=== PATIENT | female | born 1935 | race Caucasian/White ===

== ENCOUNTER 2016-12-07 17:35 | Inpatient (IN) | payer MEDICARE, BC ==
[~2016-12-07] VITALS: Ht 170.2 cm; Wt 92.9 kg
[~2016-12-07 17:35] MED LIST: ALIGN PO; ANTIVERT 25MG25 MG PO; ASPIRIN E.C. 8181 MG PO; ASPIRIN81 M2 PO; ATIVAN 0.50.5 MG/TAB PO; EVISTA60 MG PO; LASIX20 MG PO; LEXAPRO20 MG PO; LOPERAMIDE2 MG PO; LOPRESSOR 225 MG/TAB PO; MACROBID 1100 MG/CAP PO; NEPHROCAPS PO; NORCO 325 MG-51 TAB PO; PLAVIX 75MG TAB75 MG PO; PRILOSEC 20MG20 MG PO; PRILOSEC20 M1 PO; TYLENOL 325MG325 MG PO; URECHOLINE25 MG PO; XANAX0.25 MG PO; ZOFRAN 4MG T4 MG/TAB PO; ZOFRAN ODT4 MG PO; ZYPREXA5 MG PO
[2016-12-07 18:52] LABS: BASO # 0.1 (0.0-0.2); EOS # 0.1 (0.0-0.7); EOS % 1.6 % (0-4.0); GRAN # 4.4 (1.4-6.5); GRAN % 70.3 % (42.2-75.2); INR 1.1 (0.8-3.0); LYMPH % 16.6 % (20.0-51.0); MEAN CELL VOLUME 101 fl (80.0-100.0); MEAN CORPUSCULAR HGB CONC 31 g/dl (33.0-37.0); MEAN PLATELET VOLUME 9.6 fl (7.4-10.4); MONO # 0.6 (0.1-0.6); MONO % 9.9 % (1.7-9.3); PLATELET COUNT 149 K/mm3 (130-400); PROTHROMBIN TIME 12.7 SECONDS (9.7-12.8); RED BLOOD COUNT 2.24 M/mm3 (4.10-5.30); REDCELL DISTRIBUTION WIDTH-CV 17.2 % (11.5-14.5); WHITE BLOOD COUNT 6.2 K/mm3 (4.8-10.8)
[2016-12-07 19:00] LABS: HEMATOCRIT 22.6 % (37.0-47.0); HEMOGLOBIN 7.1 g/dl (12.5-16.0); MEAN CORPUSCULAR HEMOGLOBIN 32 pg (27.0-31.0)
[2016-12-07 19:07] LABS: ADJUSTED CALCIUM 9.7 mg/dL (8.4-10.2); ALBUMIN 3.8 gm/dL (3.5-5.0); BILIRUBIN,TOTAL 1.3 mg/dL (0.0-1.0); CALCIUM 9.5 mg/dL (8.4-10.2); CREATININE, serum 1.18 mg/dL (0.52-1.25); POTASSIUM 4.8 mmol/L (3.4-5.0); TOTAL PROTEIN 6.7 gm/dL (6.4-8.2)
[2016-12-07 19:48] LABS: TROPONIN-I 0.015 ng/mL (0.000-0.034)
[2016-12-07 20:02] LABS: MEAN CELL VOLUME 99 fl (80.0-100.0); MEAN CORPUSCULAR HGB CONC 32 g/dl (33.0-37.0); MEAN PLATELET VOLUME 9.3 fl (7.4-10.4); PLATELET COUNT 134 K/mm3 (130-400); RED BLOOD COUNT 2.16 M/mm3 (4.10-5.30); REDCELL DISTRIBUTION WIDTH-CV 16.9 % (11.5-14.5); WHITE BLOOD COUNT 5.8 K/mm3 (4.8-10.8)
[2016-12-07 20:05] LABS: HEMATOCRIT 21.3 % (37.0-47.0); HEMOGLOBIN 6.7 g/dl (12.5-16.0); MEAN CORPUSCULAR HEMOGLOBIN 31 pg (27.0-31.0)
[2016-12-07 22:34] VITALS: BP 178/74; PULSE 74; TEMP 97.7
[2016-12-08] VITALS (15 sets, daily range): BP systolic 108–175; BP diastolic 54–86; PULSE 65–84; TEMP 97.7–99
[2016-12-08 07:17] LABS: BASO # 0.1 (0.0-0.2); BASO % 1.1 % (0.0-2.0); EOS # 0.2 (0.0-0.7); EOS % 2.5 % (0-4.0); GRAN # 4.8 (1.4-6.5); GRAN % 68.2 % (42.2-75.2); LYMPH # 1.2 (1.2-3.4); LYMPH % 17.3 % (20.0-51.0); MEAN CORPUSCULAR HGB CONC 33 g/dl (33.0-37.0); MEAN PLATELET VOLUME 9.5 fl (7.4-10.4); MONO # 0.7 (0.1-0.6); MONO % 10.3 % (1.7-9.3); PLATELET COUNT 159 K/mm3 (130-400); RED BLOOD COUNT 3.54 M/mm3 (4.10-5.30); REDCELL DISTRIBUTION WIDTH-CV 17.5 % (11.5-14.5); WHITE BLOOD COUNT 7.1 K/mm3 (4.8-10.8)
[2016-12-08 07:18] LABS: HEMATOCRIT 33.1 % (37.0-47.0); HEMOGLOBIN 10.8 g/dl (12.5-16.0); MEAN CELL VOLUME 94 fl (80.0-100.0); MEAN CORPUSCULAR HEMOGLOBIN 31 pg (27.0-31.0)
[2016-12-08 07:23] LABS: ADJUSTED CALCIUM 9.5 mg/dL (8.4-10.2); ALBUMIN 4.2 gm/dL (3.5-5.0); BILIRUBIN,TOTAL 1.4 mg/dL (0.0-1.0); CALCIUM 9.7 mg/dL (8.4-10.2); CREATININE, serum 1.27 mg/dL (0.52-1.25); POTASSIUM 4.1 mmol/L (3.4-5.0); TOTAL PROTEIN 7.3 gm/dL (6.4-8.2)
[2016-12-08 14:21] LABS: HEMATOCRIT 31.8 % (37.0-47.0); HEMOGLOBIN 10.3 g/dl (12.5-16.0)
[2016-12-09 03:47] VITALS: BP 129/51; PULSE 69; TEMP 97.9
[2016-12-09 08:08] VITALS: BP 145/63; PULSE 76; TEMP 97.4
[2016-12-09 08:09] LABS: BASO # 0.1 (0.0-0.2); EOS # 0.2 (0.0-0.7); EOS % 3.4 % (0-4.0); GRAN # 4.1 (1.4-6.5); GRAN % 64.7 % (42.2-75.2); LYMPH # 1.2 (1.2-3.4); LYMPH % 18.4 % (20.0-51.0); MEAN CELL VOLUME 93 fl (80.0-100.0); MEAN CORPUSCULAR HGB CONC 33 g/dl (33.0-37.0); MEAN PLATELET VOLUME 9.7 fl (7.4-10.4); MONO # 0.7 (0.1-0.6); MONO % 11.7 % (1.7-9.3); PLATELET COUNT 140 K/mm3 (130-400); RED BLOOD COUNT 3.49 M/mm3 (4.10-5.30); REDCELL DISTRIBUTION WIDTH-CV 18.2 % (11.5-14.5); WHITE BLOOD COUNT 6.3 K/mm3 (4.8-10.8)
[2016-12-09 08:13] LABS: HEMATOCRIT 32.6 % (37.0-47.0); HEMOGLOBIN 10.7 g/dl (12.5-16.0); MEAN CORPUSCULAR HEMOGLOBIN 31 pg (27.0-31.0)
[2016-12-09 08:23] LABS: CALCIUM 9.5 mg/dL (8.4-10.2); CREATININE, serum 1.49 mg/dL (0.52-1.25); POTASSIUM 4.3 mmol/L (3.4-5.0)
[2016-12-09 11:21] VITALS: BP 141/68; PULSE 75; TEMP 97.5
[2016-12-09 15:46] VITALS: BP 139/59; PULSE 61; TEMP 97.4
[2016-12-09] MEDS ORDERED: FERROUS GL325 MG/TAB PO (17:44)
[2016-12-09] MEDS ORDERED: TOPROL XL 25MG25 MG PO (17:45)
[2016-12-09 20:19] VITALS: BP 121/43; PULSE 66; TEMP 97.3
[2016-12-10 00:22] VITALS: BP 138/59; PULSE 66; TEMP 97.7
[2016-12-10 05:25] VITALS: BP 117/49; PULSE 63; TEMP 97.1
[2016-12-10 08:38] VITALS: BP 119/56; PULSE 60; TEMP 96.9
== END 2016-12-10 10:49 | disposition home or self-care (01) | DRG 812 ==
LOC: COL.ER 17:35 → IMCU 20:58 → MEDICAL 12-08 13:10
PROVIDERS: Emergency Medicine; Family Medicine; Nurse Practitioner Family
DX: D62 Acute posthemorrhagic anemia (principal); L76.32 Postprocedural hematoma of skin and subcutaneous tissue following other procedure; D50.9 Iron deficiency anemia, unspecified; Z66 Do not resuscitate; I71.2 Thoracic aortic aneurysm, without rupture; I12.9 Hypertensive chronic kidney disease with stage 1 through stage 4 chronic kidney disease, or unspecified chronic kidney disease; N18.2 Chronic kidney disease, stage 2 (mild); Z95.0 Presence of cardiac pacemaker; Z87.891 Personal history of nicotine dependence
CPT/HCPCS: 99223-AI; 99239; C9113; J1940; P9016; Q9967

== ENCOUNTER 2017-06-20 15:24 | Emergency (ER) | payer MEDICARE, BC ==
[~2017-06-20] VITALS: Ht 167.6 cm; Wt 46.1 kg
[~2017-06-20 15:24] MED LIST changes: +FERROUS GL325 MG/TAB PO; +TOPROL XL 25MG25 MG PO
[2017-06-20 15:44] VITALS: TEMP 97.9
[2017-06-20] MEDS ORDERED: ATIVAN 0.50.5 MG/TAB PO (15:48)
[2017-06-20 16:31] LABS: BASO # 0.1 (0.0-0.2); BASO % 1.2 % (0.0-2.0); EOS # 0.1 (0.0-0.7); EOS % 1.3 % (0-4.0); GRAN # 4.1 (1.4-6.5); GRAN % 68.6 % (42.2-75.2); LYMPH # 1.1 (1.2-3.4); MEAN CELL VOLUME 92 fl (80.0-100.0); MEAN CORPUSCULAR HGB CONC 33 g/dl (33.0-37.0); MEAN PLATELET VOLUME 9.3 fl (7.4-10.4); MONO # 0.6 (0.1-0.6); MONO % 10.6 % (1.7-9.3); PLATELET COUNT 119 K/mm3 (130-400); RED BLOOD COUNT 3.86 M/mm3 (4.10-5.30); REDCELL DISTRIBUTION WIDTH-CV 13.7 % (11.5-14.5)
[2017-06-20 16:33] LABS: HEMATOCRIT 35.4 % (37.0-47.0); HEMOGLOBIN 11.7 g/dl (12.5-16.0); MEAN CORPUSCULAR HEMOGLOBIN 30 pg (27.0-31.0)
[2017-06-20 16:44] LABS: ADJUSTED CALCIUM 9.1 mg/dL (8.4-10.2); ALANINE AMINOTRANSFERASE 19 U/L (9-52); ALKALINE PHOSPHATASE 65 U/L (50-136); ANION GAP 7 mmol/L (7-16); BILIRUBIN,TOTAL 0.6 mg/dL (0.0-1.0); BLOOD UREA NITROGEN 14 mg/dL (7-17); CALCIUM 9.1 mg/dL (8.4-10.2); CARBON DIOXIDE 26 mmol/L (22-30); CHLORIDE 96 mmol/L (98-107); CREATININE, serum 0.83 mg/dL (0.52-1.25); GLUCOSE 80 mg/dL (74-106); LIPASE 369 U/L (23-300); POTASSIUM 4.5 mmol/L (3.4-5.0); SODIUM 129 mmol/L (137-145); TOTAL PROTEIN 6.8 gm/dL (6.4-8.2)
[2017-06-20 16:52] LABS: MAGNESIUM 1.9 mg/dL (1.6-2.3)
[2017-06-20 16:57] LABS: TROPONIN-I < 0.012 ng/mL (0.000-0.034)
[2017-06-20 17:17] LABS: PH 8 (5-8); SQUAMOUS EPITHELIAL None Seen /hpf; URINE APPEARANCE Clear; URINE BACTERIA None Seen /hpf; URINE BILIRUBIN Negative (NEGATIVE); URINE BLOOD Negative (NEGATIVE); URINE COLOR Straw; URINE GLUCOSE Negative (NEGATIVE); URINE KETONE Negative (NEGATIVE); URINE RBC 0-2 /hpf; URINE UROBILINOGEN Negative (NEGATIVE)
[2017-06-20] MEDS ORDERED: ZOFRAN ODT4 MG PO (19:24)
[2017-06-20] MEDS ORDERED: PRIL40 PO (19:24)
[2017-06-20 19:34] VITALS: BP 178/92; PULSE 80
== END 2017-06-20 19:38 | disposition home or self-care (01) ==
LOC: COL.ER 15:24
PROVIDERS: Emergency Medicine
DX: R11.0 Nausea (principal); F32.9 Major depressive disorder, single episode, unspecified; E87.1 Hypo-osmolality and hyponatremia; R10.13 Epigastric pain; R79.89 Other specified abnormal findings of blood chemistry; Z95.0 Presence of cardiac pacemaker
CPT/HCPCS: J2405; J7030; Q9967

== ENCOUNTER → 2018-08-24 | Outpatient (REF) ==
[~2018-08-24] MED LIST changes: +PRIL40 PO
[2018-08-24 09:15] LABS: THYROID STIMULATING HORMONE 1.12 uIU/mL (0.465-4.680)
== END ==
LOC: ZLAB.WCH 08:30
PROVIDERS: Internal Medicine
DX: Z01.89 Encounter for other specified special examinations (principal)

== ENCOUNTER 2021-06-11 18:22 | Inpatient (IN) | payer MEDICARE, BC ==
[~2021-06-11] VITALS: Ht 157.5 cm; Wt 50.0 kg
[2021-06-11 19:19] LABS: BASO # 0.1 (0.0-0.2); BASO % 0.8 % (0.0-2.0); EOS % 0.2 % (0-4.0); GRAN # 8.3 (1.4-6.5); GRAN % 80.8 % (42.2-75.2); LYMPH # 1.1 (1.2-3.4); LYMPH % 10.8 % (20.0-51.0); MEAN CELL VOLUME 94 fl (80.0-100.0); MEAN CORPUSCULAR HGB CONC 32 g/dl (33.0-37.0); MEAN PLATELET VOLUME 10.6 fl (7.4-10.4); MONO # 0.7 (0.1-0.6); MONO % 6.9 % (1.7-9.3); PLATELET COUNT 129 K/mm3 (130-400); RED BLOOD COUNT 2.81 M/mm3 (4.10-5.30); REDCELL DISTRIBUTION WIDTH-CV 14.1 % (11.5-14.5)
[2021-06-11 19:25] LABS: ALBUMIN 3.8 gm/dL (3.5-5.0); BILIRUBIN,TOTAL 0.4 mg/dL (0.0-1.0); C-REACTIVE PROTEIN 0.7 mg/dL (0.0-0.9); CALCIUM 9.6 mg/dL (8.4-10.2); CREATININE, serum 1.25 (0.52-1.25); POTASSIUM 5.2 mmol/L (3.4-5.0); TOTAL PROTEIN 6.4 gm/dL (6.4-8.2)
[2021-06-11 19:26] LABS: HEMATOCRIT 26.5 % (37.0-47.0); HEMOGLOBIN 8.4 g/dl (12.5-16.0); MEAN CORPUSCULAR HEMOGLOBIN 30 pg (27.0-31.0)
[2021-06-11 19:46] LABS: COLLECTION METHOD CATHETER
[2021-06-11 20:40] LABS: PH 7 (5-8); URINE APPEARANCE Turbid; URINE COLOR Red; URINE GLUCOSE Negative (NEGATIVE); URINE KETONE Negative (NEGATIVE); URINE PROTEIN(semi-quant) 2+ (NEGATIVE)
[2021-06-11 20:41] LABS: URINE BILIRUBIN Positive (NEGATIVE); URINE BLOOD 3+ (NEGATIVE); URINE LEUKOCYTE ESTERASE Negative (NEGATIVE); URINE NITRATE Negative (NEGATIVE); URINE UROBILINOGEN Negative (NEGATIVE)
[2021-06-11 21:17] LABS: URINE RBC >50 /hpf
[2021-06-11] MEDS ORDERED: ASPIRIN 81M81 MG/TA2 PO (23:10)
[2021-06-12] VITALS (18 sets, daily range): BP systolic 113–147; BP diastolic 45–81; PULSE 64–85; TEMP 97.5–98
[2021-06-12 00:28] LABS: HEMATOCRIT 23.2 % (37.0-47.0); HEMOGLOBIN 7.3 g/dl (12.5-16.0)
[2021-06-12] MEDS ORDERED: CRANBERRY250 MG PO (03:12)
[2021-06-12] MEDS ORDERED: TOPROL XL 25MG25 MG PO (03:13)
[2021-06-12] MEDS ORDERED: VITAMIND3 5000 PO (03:13)
[2021-06-12] MEDS ORDERED: EFFEXOR XR75 MG/CAP PO (03:13)
--- NOTE | 2021-06-12 06:23 | NUR ---
Jimi Arzola/ Urologist notified for consult this morning and Marquis Souza/ GI was also notified. Message left to the Insurance Loss Assessor in voicemail Tobi Rojas.
--- NOTE | 2021-06-12 07:09 | NUR ---
Pt resting with eyes closed, even non labored breathing
--- NOTE | 2021-06-12 08:00 | NUR ---
Pt appears to be doing well this morning. States that she is not having any pain. Urine output is reddish to dark tea colored. Dr Meyer has been in to see pt and is calling daughter to discuss treatment plan. Lab in at this time drawing morning labs. Pt is now NPO
[2021-06-12 09:18] LABS: BASO # 0.1 (0.0-0.2); BASO % 0.7 % (0.0-2.0); EOS # 0.1 (0.0-0.7); EOS % 0.6 % (0-4.0); GRAN # 6.2 (1.4-6.5); GRAN % 69.4 % (42.2-75.2); LYMPH # 1.7 (1.2-3.4); LYMPH % 19.1 % (20.0-51.0); MEAN CELL VOLUME 93 fl (80.0-100.0); MEAN CORPUSCULAR HGB CONC 32 g/dl (33.0-37.0); MEAN PLATELET VOLUME 10.4 fl (7.4-10.4); MONO # 0.9 (0.1-0.6); MONO % 9.8 % (1.7-9.3); PLATELET COUNT 105 K/mm3 (130-400); RED BLOOD COUNT 2.78 M/mm3 (4.10-5.30)
[2021-06-12 09:19] LABS: HEMATOCRIT 25.8 % (37.0-47.0); HEMOGLOBIN 8.2 g/dl (12.5-16.0); MEAN CORPUSCULAR HEMOGLOBIN 29 pg (27.0-31.0)
[2021-06-12 09:20] LABS: INR 1.3 (0.8-3.0); PROTHROMBIN TIME 14.5 SECONDS (9.7-12.8)
[2021-06-12 09:23] LABS: PARTIAL THROMBOPLASTIN TIME 26.6 SECONDS (26.0-37.0)
[2021-06-12 09:27] LABS: CALCIUM 8.5 mg/dL (8.4-10.2); CREATININE, serum 1.16 (0.52-1.25); POTASSIUM 4.6 mmol/L (3.4-5.0)
--- NOTE | 2021-06-12 10:06 | NUR ---
I met with patient and her daughter today at bedside to do initial assessment. Pt lives in her home with help from [employer] in mornings and from her daughter in afternoon and evening and then stays by herself at night. She does not go out in public d/t covid but feels she is managing pretty well. She and her caregivers were very surprised by the bleeding that occured last night as they have not seen this before. They are wanting to know what has caused this but are not wanting invasive procedures until they can weigh the risks vs benefits. Pt is very alert and contributes appropriately to conversation. They have agreed to do cystoscopy today but are waiting to talk with Dr Brooke about other procedures. Daughter reports that pt had bleeding after her last colonsocopy. Pt is DNR at this time. Patient and daughter are not ready for comfort care at this point but want to weigh risk vs benefit about any procedures/testing that is discussed.
--- NOTE | 2021-06-12 12:15 | NUR ---
Plan is to return home unless rehab is needed. OMER completed assessment with DTR Lashell over the phone via . Patient is reported to be fairly independent and does not have any DME, for mobility. Dtr report that they have a private RADIOLOGY TRANSCRIPTIONIST that comes to the home supports care need for patient. Patient reports that she had legal POA and left a copy with Emergency. 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 Patient PCP is Markus Rabago. Patient has a DNR. and DTR plans to remain active in care of the patient and will support transition home as time comes. SW offered supports and services to DTR for care. Educated on role of SW and will continue to follow. JO ANN.
--- NOTE | 2021-06-12 14:54 | NUR ---
Pt daughter in room, consent signed for surgery. Pt prepped for surgery, OR staff here to get her at this time
--- NOTE | 2021-06-12 16:20 | NUR ---
PATIENT STILL IN SURGERY AT THIS TIME.
--- NOTE | 2021-06-12 18:05 | NUR ---
PATIENT ON CLEAR LIQUID DIET. EATING JELLO AND BEEF BROTH. DAUGHTER IN ROOM. CONSENT SIGNED FOR COLONOSCOPY. VSS. FOLLOWING CYSTO.
[2021-06-12 18:25] LABS: HEMATOCRIT 24.9 % (37.0-47.0); HEMOGLOBIN 8.1 g/dl (12.5-16.0)
[2021-06-13] VITALS (18 sets, daily range): BP systolic 100–147; BP diastolic 41–95; PULSE 64–94; TEMP 97.5–98.4
--- NOTE | 2021-06-13 06:41 | NUR ---
PATIENT DID BOWEL PREP OVER NIGHT. BOWEL CLEAR OUT. VSS. OUT OF WITH 1 ASSIST TO ASSIST TO COMMODE. NPO FOR COLONOSCOPY TODAY. CALL LIGHT WITH REACH. WILL CONTINUE TO MONITOR.
[2021-06-13 07:50] LABS: MEAN CELL VOLUME 94 fl (80.0-100.0); MEAN CORPUSCULAR HGB CONC 32 g/dl (33.0-37.0); MEAN PLATELET VOLUME 10.1 fl (7.4-10.4); PLATELET COUNT 89 K/mm3 (130-400); RED BLOOD COUNT 2.41 M/mm3 (4.10-5.30); REDCELL DISTRIBUTION WIDTH-CV 15.5 % (11.5-14.5)
--- NOTE | 2021-06-13 07:51 | NUR ---
Patient sitting up in bed. Alert and oriented to self and place. Assessment complete. Patient states she is having diarrhea this morning. Patient denies pain or needs at this time.
[2021-06-13 07:55] LABS: HEMATOCRIT 22.6 % (37.0-47.0); HEMOGLOBIN 7.2 g/dl (12.5-16.0); MEAN CORPUSCULAR HEMOGLOBIN 30 pg (27.0-31.0)
[2021-06-13 08:02] LABS: CALCIUM 8.2 mg/dL (8.4-10.2); CREATININE, serum 1.08 (0.52-1.25); POTASSIUM 3.5 mmol/L (3.4-5.0)
--- NOTE | 2021-06-13 10:30 | NUR ---
Patient back to room from Bert by sola.
--- NOTE | 2021-06-13 15:56 | NUR ---
Met with patient briefly after her EGD/colonoscopy. She is feeling sleepy and reports she is at home now. he daughter is not at bedside but has spoken to the physicians. She will get another unit of blood today.
--- NOTE | 2021-06-13 16:23 | NUR ---
Blood transfusion initiated per orders.
--- NOTE | 2021-06-13 18:09 | NUR ---
Patient doing well throughout the day. Daughter at bedside this afternoon. Patient denies pain at this time. [place] discontinued per orders at 1600, patient has not voided yet. Denies further needs at this time. Will report off to security shift supervisor.
[2021-06-13 18:55] LABS: HEMATOCRIT 28.7 % (37.0-47.0); HEMOGLOBIN 9.3 g/dl (12.5-16.0)
--- NOTE | 2021-06-13 19:19 | NUR ---
PATIENT SITTING UP IN BED EATING DINER. DAUGHTER AT BEDSIDE. BLOOD TRANSFUSION JUST FINISHED. VSS. NO ISSUES AT THIS TIME. WILL CONTINUE TO MONITOR.
[2021-06-14 03:52] VITALS: BP 130/59; PULSE 63; TEMP 98.5
[2021-06-14 06:49] LABS: MEAN CELL VOLUME 96 fl (80.0-100.0); MEAN CORPUSCULAR HGB CONC 32 g/dl (33.0-37.0); MEAN PLATELET VOLUME 10.3 fl (7.4-10.4); PLATELET COUNT 114 K/mm3 (130-400); RED BLOOD COUNT 3.19 M/mm3 (4.10-5.30); REDCELL DISTRIBUTION WIDTH-CV 15.1 % (11.5-14.5)
[2021-06-14 06:53] LABS: CALCIUM 8.4 mg/dL (8.4-10.2); CREATININE, serum 1.07 (0.52-1.25); POTASSIUM 3.2 mmol/L (3.4-5.0)
[2021-06-14 07:02] LABS: HEMATOCRIT 30.5 % (37.0-47.0); HEMOGLOBIN 9.6 g/dl (12.5-16.0); MEAN CORPUSCULAR HEMOGLOBIN 30 pg (27.0-31.0)
[2021-06-14 07:29] VITALS: BP 143/76; PULSE 91; TEMP 97.8
--- NOTE | 2021-06-14 08:30 | NUR ---
Patient tolerated breakfast. high fall risk protocol followed. Patient oriented to time, she was not aware it was the morning. Int. Patient worked with therapy up in chair. Isaias shultz.
--- NOTE | 2021-06-14 09:45 | NUR ---
Patient started on potassium protocol. Spoke to about patient. Patient has had 3 episode of loose stool. Assist with pericare & brief provided. New linens. Update given to daughter.
[2021-06-14 11:26] VITALS: BP 137/82; PULSE 70; TEMP 97.9
--- NOTE | 2021-06-14 14:30 | NUR ---
Patient resting in chair. Reoriented as needed. Patient reports seeing a cattle drive out her window. High fall risk protocol followed. She is working on finishing her k+ replacement.
[2021-06-14 16:00] VITALS: BP 142/63; PULSE 70; TEMP 97.8
--- NOTE | 2021-06-14 17:37 | NUR ---
Patient daughter at bedside. Her daughter has concerns about her mothers mentation, reports this is not her normal. She was concerned about her seeing a cattle drive outside. I called Tran Carmen, lab orders obtained. Will continue to monitor.
[2021-06-14 18:23] LABS: HEMOGLOBIN 10.1 g/dl (12.5-16.0)
[2021-06-14 18:35] LABS: HEMATOCRIT 30.8 % (37.0-47.0)
[2021-06-14 18:41] LABS: CALCIUM 8.9 mg/dL (8.4-10.2); CREATININE, serum 1.08 (0.52-1.25); POTASSIUM 4.1 mmol/L (3.4-5.0)
--- NOTE | 2021-06-14 19:01 | NUR ---
Patient lab resulted. Tran made aware. Patient up to the bathroom, unable to void, small amount of loose stool. Patient exhausted. Resting in bed. Ready to sleep. fall risk protocol followed.
--- NOTE | 2021-06-14 19:51 | NUR ---
PATIENT FALL DOWN IN HER ROOM. FOUND SITTING BY THE SIDE OF HER BED. PATIENT REPORTS THAT SHE DIDN'T HIT HER HEAD. NO KNEW BRUISES NOTED. PATIENT DENIES PAIN. VSS. HOSPITALIST MADE AWARE. BED ALARM IN PLACE, CALL LIGHT WITHIN REACH. WILL CONTINUE TO MONITOR.
--- NOTE | 2021-06-14 19:52 | NUR ---
Tran-Hospitalist on for this shift-notified of patients fall. This nurse found dona sitting on floor between bed and IV pole. States she was getting up to see what the noise was outside and to see if it was raining and lost her balance and sat on the floor hard. Denies pain at this time. Denies hitting head. States she bumped her right elbow. Right elbow noted to be bruised. No other visual vidal. VS 156/76, pulse 95, RR 16 and pulse ox 96%. Reported off to KRYSTEN Guillen.
[2021-06-14 19:53] VITALS: BP 153/76; PULSE 96; TEMP 97.5
[2021-06-14 21:13] LABS: COLLECTION METHOD CATHETER
[2021-06-14 21:34] LABS: BUDDING YEAST Present /hpf; PH 5 (5-8); SQUAMOUS EPITHELIAL None Seen /hpf; URINE APPEARANCE Cloudy; URINE BACTERIA None Seen /hpf; URINE BILIRUBIN Negative (NEGATIVE); URINE BLOOD 3+ (NEGATIVE); URINE COLOR Yellow; URINE GLUCOSE Negative (NEGATIVE); URINE KETONE Negative (NEGATIVE); URINE LEUKOCYTE ESTERASE Trace (NEGATIVE); URINE NITRATE Negative (NEGATIVE); URINE PROTEIN(semi-quant) 2+ (NEGATIVE); URINE RBC >50 /hpf; URINE UROBILINOGEN Negative (NEGATIVE)
[2021-06-15 01:17] VITALS: BP 139/48; PULSE 73; TEMP 98
[2021-06-15 03:14] VITALS: BP 138/62; PULSE 71; TEMP 97.6
[2021-06-15 07:29] VITALS: BP 147/77; PULSE 89; TEMP 97.6
--- NOTE | 2021-06-15 08:00 | NUR ---
Patient sitting up in chair eating breakfast. Patient seems more clear this am. Patient had a loose incontinent blood tinged stool. Patient up to shower this am & assisted with hygiene. Fresh linens. High fall risk protocol followed. Alarms on. Int. Tele on Vss. Will closely monitor.
[2021-06-15 09:15] LABS: BASO # 0.1 (0.0-0.2); BASO % 0.7 % (0.0-2.0); EOS # 0.3 (0.0-0.7); EOS % 3.1 % (0-4.0); GRAN # 6.8 (1.4-6.5); GRAN % 76.9 % (42.2-75.2); LYMPH # 0.9 (1.2-3.4); LYMPH % 10.4 % (20.0-51.0); MEAN CELL VOLUME 94 fl (80.0-100.0); MEAN CORPUSCULAR HGB CONC 32 g/dl (33.0-37.0); MONO # 0.8 (0.1-0.6); MONO % 8.6 % (1.7-9.3); PLATELET COUNT 115 K/mm3 (130-400); RED BLOOD COUNT 3.21 M/mm3 (4.10-5.30); REDCELL DISTRIBUTION WIDTH-CV 15.1 % (11.5-14.5)
[2021-06-15 09:22] LABS: CALCIUM 8.7 mg/dL (8.4-10.2); CREATININE, serum 1.07 (0.52-1.25); POTASSIUM 3.7 mmol/L (3.4-5.0)
[2021-06-15 09:23] LABS: HEMOGLOBIN 9.7 g/dl (12.5-16.0); MEAN CORPUSCULAR HEMOGLOBIN 30 pg (27.0-31.0)
[2021-06-15] MEDS ORDERED: OMNICEF 300MG300 MG PO (10:09)
[2021-06-15] MEDS ORDERED: PROTONIX 40MG T40 MG PO (10:10)
[2021-06-15] MEDS ORDERED: DITROPAN XL 5MG5 M1 PO (10:11)
--- NOTE | 2021-06-15 10:23 | NUR ---
OMER Update: OMER notifed of patient DC. OMER spoke with patient and DTR about home health care options. DTr reports that patient will reside with her temporarily until she can return home. DTR address is [address] in [place]. OMER sent fax to [facility], [facility], [facility] and [facility] health. In case others can not meet needs. Educated Dtr about Home health options. DTR also wanted to include bathing options for patient. WIll screen on Wednesday.
--- NOTE | 2021-06-15 11:07 | NUR ---
[facility] can accept for Home Health and discussed Wednesday evening. Fax DC order to .
[2021-06-15 11:40] VITALS: BP 155/81; PULSE 73; TEMP 97.8
--- NOTE | 2021-06-15 18:03 | NUR ---
Patient ready for discharge. Her daughter here to take her home. All discharge paperwork reviewed with patient and her daughter. Patient daughter had some concerns about her urine, notifed reports urine may be slighty bloody for a few weeks. He will have tele visit with patient & discussed path when resulted. I also spoke to prior to discharge about daughter concerns, patient and daughter were offered to stay overnight if wanted, but patient wanting to get home. Patient reports being tired, she did say a few off things that her daughter was concerned about, but may be due to exhaustion. Home med list reviewed, with new scripts and last dose taken. Patient daughter to call for follow up appt. Int DC. Patient daughter helped her dress. Patient wheeled out with all belongings.
== END 2021-06-15 18:14 | disposition home health service (06) | DRG 669 ==
LOC: COL.ER 18:22 → SURG 21:43
PROVIDERS: Nurse Practitioner; Nurse Practitioner Family; Physician Assistant; Student in an Organized Health Care Education/Training Program; Urology; ADMIT Internal Medicine
PROC: 0T5B8ZZ Destruction of Bladder, Via Natural or Artificial Opening Endoscopic (ICD-10-PCS; principal; 2021-06-12 15:45)
PROC: 0TBB8ZX Excision of Bladder, Via Natural or Artificial Opening Endoscopic, Diagnostic (ICD-10-PCS; 2021-06-12 15:45)
PROC: BT141ZZ Fluoroscopy of Kidneys, Ureters and Bladder using Low Osmolar Contrast (ICD-10-PCS; 2021-06-12 15:45)
DX: R31.0 Gross hematuria (principal); D62 Acute posthemorrhagic anemia; E87.1 Hypo-osmolality and hyponatremia; K92.1 Melena; Z20.822 Contact with and (suspected) exposure to COVID-19; D69.6 Thrombocytopenia, unspecified; E87.5 Hyperkalemia; I12.9 Hypertensive chronic kidney disease with stage 1 through stage 4 chronic kidney disease, or unspecified chronic kidney disease; I49.5 Sick sinus syndrome; Z66 Do not resuscitate; F32.9 Major depressive disorder, single episode, unspecified; N18.2 Chronic kidney disease, stage 2 (mild); N32.9 Bladder disorder, unspecified; I71.2 Thoracic aortic aneurysm, without rupture; I70.90 Unspecified atherosclerosis; R53.81 Other malaise; Z79.82 Long term (current) use of aspirin; K27.9 Peptic ulcer, site unspecified, unspecified as acute or chronic, without hemorrhage or perforation; J44.9 Chronic obstructive pulmonary disease, unspecified; N39.0 Urinary tract infection, site not specified
CPT/HCPCS: 99223-AI; 99232-AI; 99233-AI; 99239; C1769; C9113; J0690; J0696; J2405; J2704; J3010; J7030; P9016; Q9967

== ENCOUNTER 2021-08-18 17:58 | Inpatient (IN) | payer MEDICARE, BC ==
[~2021-08-18] VITALS: Ht 167.6 cm; Wt 48.6 kg
[~2021-08-18 17:58] MED LIST changes: +ASPIRIN 81M81 MG/TA2 PO; +CRANBERRY250 MG PO; +DITROPAN XL 5MG5 M1 PO; +EFFEXOR XR75 MG/CAP PO; +OMNICEF 300MG300 MG PO; +PROTONIX 40MG T40 MG PO; +VITAMIND3 5000 PO
[2021-08-18 18:02] VITALS: BP 126/74; PULSE 81; TEMP 97.9
[2021-08-18 18:22] LABS: BASO # 0.1 K/mm3 (0.0-0.2); BASO % 0.7 % (0.0-2.0); EOS # 0.1 K/mm3 (0.0-0.7); EOS % 1.4 % (0-4.0); GRAN # 7.2 K/mm3 (1.4-6.5); GRAN % 72.4 % (42.2-75.2); HEMOGLOBIN 10.2 g/dl (12.5-16.0); LYMPH # 1.7 K/mm3 (1.2-3.4); LYMPH % 16.6 % (20.0-51.0); MEAN CELL VOLUME 97 fl (80.0-100.0); MEAN CORPUSCULAR HEMOGLOBIN 30 pg (27.0-31.0); MEAN CORPUSCULAR HGB CONC 31 g/dl (33.0-37.0); MEAN PLATELET VOLUME 9.9 fl (7.4-10.4); MONO # 0.8 K/mm3 (0.1-0.6); MONO % 8.5 % (1.7-9.3); PLATELET COUNT 128 K/mm3 (130-400); RED BLOOD COUNT 3.44 M/mm3 (4.10-5.30); REDCELL DISTRIBUTION WIDTH-CV 14.1 % (11.5-14.5)
[2021-08-18 18:28] LABS: HEMATOCRIT 33.2 % (37.0-47.0)
[2021-08-18 18:39] LABS: INR 1.3 (0.8-3.0)
[2021-08-18 18:45] LABS: ALBUMIN 3.6 gm/dL (3.4-4.8); ALKALINE PHOSPHATASE 69 U/L (0-750); ANION GAP 11 mmol/L (7-16); AST,SGOT 18 U/L (5-34); BILIRUBIN,TOTAL 0.3 mg/dL (0.2-1.2); BLOOD UREA NITROGEN 32 mg/dL (10-20); CALCIUM 9.7 mg/dL (8.4-10.2); CARBON DIOXIDE 22 mmol/L (23-31); CHLORIDE 110 mmol/L (98-107); CREATININE, serum 1.59 mg/dL (0.57-1.11); GLUCOSE 121 mg/dL (70-99); POTASSIUM 4.2 mmol/L (3.5-4.5); SODIUM 143 mmol/L (136-145); TOTAL PROTEIN 6.9 gm/dL (6.2-8.1)
[2021-08-18 18:51] LABS: ALANINE AMINOTRANSFERASE < 6 U/L (0-55)
[2021-08-18 21:24] LABS: COLLECTION METHOD CATHETER
[2021-08-18 21:31] LABS: AMORPHOUS CRYSTAL Present /uL; MUCOUS Present /lpf; PH 6 (5-8); URINE APPEARANCE Cloudy; URINE BACTERIA Rare /hpf; URINE BILIRUBIN Negative (NEGATIVE); URINE BLOOD Negative (NEGATIVE); URINE COLOR Amber; URINE GLUCOSE Negative (NEGATIVE); URINE KETONE Trace (NEGATIVE); URINE LEUKOCYTE ESTERASE 2+ (NEGATIVE); URINE NITRATE Negative (NEGATIVE); URINE PROTEIN(semi-quant) 2+ (NEGATIVE)
--- NOTE | 2021-08-19 01:01 | NUR ---
Patient arrived to ICU 7 with daughter at bedside at 0040. Patient had no adequate respirations and weak pulse felt to right radial and left femoral. Patient sister arrived at 0050. Time of called at 0052 by MARY ANN Paz, KRYSTEN Juarez and myself. Patient family remaining at bedside.
--- NOTE | 2021-08-19 01:34 | NUR ---
Contacted [facility] and spoke with Anny. Patient is not a candidate at this time. Referral #[id number].
--- NOTE | 2021-08-19 02:27 | NUR ---
Contacted [facility] per family request.
--- NOTE | 2021-08-19 02:30 | NUR ---
Family left. Fay home called by house supervisior. Patient cleaned and all lines removed and poon.
--- NOTE | 2021-08-19 02:53 | NUR ---
Patient discharged to home at 0247
== END 2021-08-19 02:45 | disposition expired | DRG 871 ==
LOC: COL.ER 17:58 → SURG 19:51 → ICU 19:52 → SURG 19:52 → ICU 08-19 02:45
PROVIDERS: Personal Emergency Response Attendant; Student in an Organized Health Care Education/Training Program; ADMIT Internal Medicine
PROC: 02HV33Z Insertion of Infusion Device into Superior Vena Cava, Percutaneous Approach (ICD-10-PCS; principal; 2021-08-18)
DX: A41.9 Sepsis, unspecified organism (principal); S72.21XA Displaced subtrochanteric fracture of right femur, initial encounter for closed fracture; N39.0 Urinary tract infection, site not specified; R65.20 Severe sepsis without septic shock; Z95.0 Presence of cardiac pacemaker; I48.91 Unspecified atrial fibrillation; I12.9 Hypertensive chronic kidney disease with stage 1 through stage 4 chronic kidney disease, or unspecified chronic kidney disease; N18.9 Chronic kidney disease, unspecified; Z87.11 Personal history of peptic ulcer disease; Z85.118 Personal history of other malignant neoplasm of bronchus and lung; F32.A Depression, unspecified; W01.0XXA Fall on same level from slipping, tripping and stumbling without subsequent striking against object, initial encounter; Y92.090 Kitchen in other non-institutional residence as the place of occurrence of the external cause; D69.6 Thrombocytopenia, unspecified; I71.2 Thoracic aortic aneurysm, without rupture; I70.90 Unspecified atherosclerosis; Z66 Do not resuscitate; Z60.2 Problems related to living alone
CPT/HCPCS: 99223-AI; J0696; J2270; J2405; J2550; J7030; J7060; J7120